=== PATIENT | male | born 1985 | race Caucasian/White ===

== ENCOUNTER 2017-12-11 05:20 | Day surgery (SDC) | payer OTHER ==
[~2017-12-11] VITALS: Ht 177.8 cm; Wt 73.5 kg
--- NOTE | ~2017-12-11 | OP ---
PATIENT NAME: GRISEL ADAMES MEDICAL RECORD: [id number] :83 LOCATION:D[facility] ADMISSION DATE: SURGEON: KARLOS NICHOLSON MD DATE OF OPERATION: 12/11/2017 PREOPERATIVE DIAGNOSIS: Rectal cancer in need of IV access for chemotherapy. POSTOPERATIVE DIAGNOSIS: Rectal cancer in need of IV access for chemotherapy. PROCEDURES: 1. Placement of left infraclavicular PowerPort under fluoroscopy. 2. Immediate surgeon interpretation of the fluoroscopic images. SURGEON: Karlos Nicholson MD ASSOCIATE PROFESSOR OF SURGERY: None. BLOOD LOSS: Minimal. ANESTHESIA: General. COMPLICATIONS: None. The risks, possible complications, and alternatives to the procedure were explained to the patient. He elects to proceed. OPERATIVE COURSE: The patient was conveyed to the operating room electively on 12/11/2017. General anesthesia was induced by the anesthesia staff. The left neck and left chest was sterilely prepped and draped. Under real time ultrasound, I interrogated the left neck. I identified a large compressible internal jugular vein. Under ultrasonographic guidance, I percutaneously accessed the right internal jugular vein easily. The guidewire passed easily. This was visualized fluoroscopically. No radiologist was present for this procedure. Static fluoroscopic images were obtained and are kept in the PACS system. The surgeon interpretation of the radiographic images is dictated within the body of this operative note. An incision was accomplished in the left anterior infraclavicular chest. I created a port pocket in a caudad direction. I then removed some of the adipose tissue from between the port pocket and the skin. I tunneled a PowerPort catheter from the chest incision to the neck incision. An incision was accomplished in the neck around the wire. Under real time fluoroscopy, I advanced a dilator sheath over the wire. The dilator and wire were removed. Through this sheath, I advanced the PowerPort catheter. It was advanced to the cavoatrial junction. In the port pocket, the catheter was divided. It was attached to the PowerPort. The locking device was firmly engaged. The port was sutured to the underlying pectoralis muscle with interrupted 3-0 Prolenes times 3 to prevent the port from flipping. I irrigated in the port pocket with normal saline. The skin at the neck was closed with a single intracuticular 3-0 Vicryl. The skin in the chest was closed with interrupted 3-0 Vicryl for the deep dermis as well as a running intracuticular 3-0 Vicryl for the skin. I then accessed the port. It accessed easily, aspirated dark, nonpulsatile blood and flushed easily with heparinized saline. A sterile dressing was applied. OPERATIVE REPORT [id number] GRISEL ADAMES The patient was then extubated and conveyed to the post-anesthesia care unit where he was in stable condition. The port can be utilized immediately for IV access. There is no need for the patient to see me in followup in the office unless he develops a complication related to this operative procedure. TRANSINT:[id number] Voice Confirmation ID: [id number] DOCUMENT ID: [id number] CC: [facility]. KARLOS NICHOLSON MD at 1816 CC: JANIE LING STIEVE, JEFFREY MD, ADI WELLINGTON MD and [id number] L DICTATION DATE: 12/11/17 1027 ASSEMBLER KNIFE: 12/11/17 1248 [facility] 12/11/17 [id number] [place] [address]
[2017-12-11] MEDS ORDERED: ZOLOFT20 MG/ML PO (06:23)
[2017-12-11] MEDS ORDERED: HYDROCODON-ACE1 EAC7 (06:24)
[2017-12-11 06:26] VITALS: BP 109/74; Ht 177.8 cm; Wt 73.5 kg
[2017-12-11 06:36] LABS: BASOPHILS 0.2 % (0-2); EOSINOPHILS 5.4 % (0-7); HEMATOCRIT 37.5 % (42.0-54.0); HEMOGLOBIN 12.1 g/dL (13.5-17.5); IMMATURE GRANULOCYTES 0.4 % (0-5); LYMPHOCYTES 36.5 % (15-50); MCH 28.8 pg (26.0-34.0); MCHC 32.3 g/dL (31.0-37.0); MCV 89.3 fL (80.0-100.0); MEAN PLATELET VOLUME 9.3 fL (7.4-10.4); NEUTROPHILS 49.5 % (40-80); PLATELET COUNT 309 10x3/uL (130-400); WBC 8.9 10x3/uL (4.8-10.8)
[2017-12-11 06:52] LABS: APTT 29.8 SECONDS (22.8-39.4); INR 0.97 (0.85-1.17); PROTIME 12.5 SECONDS (11.6-15.0)
[2017-12-11 07:02] LABS: ALBUMIN 3.5 g/dL (3.4-5.0); ALKALINE PHOSPHATASE 107 U/L (46-116); ALT (SGPT) 20 U/L (10-68); BILIRUBIN - TOTAL 0.26 mg/dL (0.2-1.3); CALC OSMOLALITY 280 mosm/kg (275-300); CALCIUM 8.7 mg/dL (8.5-10.1); CHLORIDE - SERUM 103 mmol/L (98-107); CREATININE - SERUM 0.7 mg/dL (0.6-1.3); GLUCOSE 95 mg/dL (74-106); POTASSIUM - SERUM 4.1 mmol/L (3.5-5.1); SODIUM 140 mmol/L (136-145); UREA NITROGEN 17 mg/dL (7-18); eGFR NON AFRICAN AMERICAN > 90 mL/min (90-120)
== END 2017-12-11 12:03 | disposition home or self-care (01) ==
LOC: D.OPS 05:20
PROVIDERS: Anesthesiology
DX: C20 Malignant neoplasm of rectum (principal); Z01.812 Encounter for preprocedural laboratory examination